=== PATIENT | male | born 1965 | race Hispanic/Latino ===

== ENCOUNTER 2020-06-28 17:50 | Inpatient (IN) | payer MEDICARE ==
[~2020-06-28] VITALS: Ht 149.9 cm; Wt 49.6 kg
[~2020-06-28 17:50] MED LIST: ATROPINE 1MG SYG IVP ONE; CACL 1GM SYG IVP ONE; SODIUM BICARB 8.4% 50ML SYRINGE IVP ONE
[2020-06-28] MEDS ORDERED: KETAMINE HCL 100 MG/ML 5ML VIAL IJ ONE (18:24)
[2020-06-28] MEDS ORDERED: 0.9%NACL 1000ML 1,000 ML IV ONE ×2 (18:46→20:34)
[2020-06-28] MEDS ORDERED: ALBUTEROL INHALER 90MCG/INH IH ONE (19:11)
[2020-06-28 19:24] LABS: BASOPHILS % (AUTO) 0.2 % (0.0-5.0); EOSINOPHILS % (AUTO) 0.2 % (0.0-8.0); HEMATOCRIT 49.1 % (42-54); LYMPHOCYTES % (AUTO) 7.7 % (21.0-51.0); MEAN CORPUSCULAR HEMOGLOBIN 32.1 pg (27.0-33.0); MEAN CORPUSCULAR HGB CONC 32.6 g/dL (32.0-36.0); MEAN CORPUSCULAR VOLUME 98.6 fL (79-99); MONOCYTES % (AUTO) 7.4 % (3.0-13.0); NEUTROPHILS % (AUTO) 84.1 % (40.0-77.0); PLATELET COUNT (AUTO) 133 K/uL (130-400); RED BLOOD CELL COUNT(AUTO) 4.98 MIL/uL (4.50-6.20); WHITE BLOOD COUNT (AUTO) 16.2 K/uL (4.8-10.8)
[2020-06-28 19:53] LABS: ALBUMIN 2.8 g/dL (3.5-5.0); BILIRUBIN,TOTAL 1.3 mg/dL (0.2-1.0); CREATININE 1.5 mg/dL (0.5-1.5); POTASSIUM 3.8 mmol/L (3.5-5.1); TOTAL PROTEIN, SERUM 8.3 g/dL (6.0-8.3)
[2020-06-28] MEDS ORDERED: LORAZEPAM 2 MG/ML 1 ML VIAL ONE (20:01)
[2020-06-28 20:26] LABS: ABG HCO3 27.1 mmol/L (21.0-28.0); ABG OXYGEN SATURATION 88.3 % (95.0-99.0); ABG PCO2 48 mmHg (35-48)
[2020-06-28 20:49] LABS: APPEARANCE,URINE Clear (CLEAR); BILIRUBIN,URINE Small (NEGATIVE); COLOR,URINE Dark Yellow (YELLOW); GLUCOSE, URINE (UA) Negative (NEGATIVE); KETONES,URINE Trace mg/dL (NEGATIVE); LEUKOCYTE ESTERASE ,URINE Negative (NEGATIVE); NITRATE,URINE Negative (NEGATIVE); OCCULT BLOOD,URINE Negative (NEGATIVE); PROTEIN,URINE Trace mg/dL (NEGATIVE)
[2020-06-28 20:58] LABS: BACTERIA,URINE Rare /HPF (None Seen); RBC,URINE None Seen /HPF (0-1); SQUAMOUS EPITHELIAL CELL,UR None Seen /HPF (0-2); WBC,URINE 0-1 /HPF (0-1)
[2020-06-28] MEDS ORDERED: ERGOCALCIFEROL (VITAMIN D2) 50,000 UNIT CAPSULE PO ONE (21:30)
[2020-06-28] MEDS ORDERED: ACETAMINOPHEN 325 MG TAB PO PRN ×2 (21:30)
[2020-06-28] MEDS ORDERED: DEXTROSE 5 %-0.45 % NACL 1,000 ML IV SCH (21:30)
[2020-06-28] MEDS ORDERED: DIPHENHYDRAMINE HCL 25 MG CAPSULE PO PRN (21:30)
[2020-06-28] MEDS ORDERED: DiphenhydrAMINE HCL 50 MG/ML VIAL IV PRN (21:30)
[2020-06-28] MEDS ORDERED: ONDANSETRON 4MG INJ IV PRN (21:30)
[2020-06-28] MEDS ORDERED: GUAIFENESIN-DM 200/20 MG 10 ML PO PRN (21:30)
[2020-06-28] MEDS ORDERED: NITROGLYCERIN 0.4 MG SL TAB SL PRN (21:30)
[2020-06-28] MEDS ORDERED: LACTULOSE 20 GM/30 ML UDCUP PO PRN (21:30)
[2020-06-28] MEDS ORDERED: MAG/ALUM/SIMETH 30 ML UDCUP PO PRN (21:30)
[2020-06-28] MEDS ORDERED: CEFTRIAXONE 1G VIAL ONE (21:37)
[2020-06-28] MEDS ORDERED: AZITHROMYCIN 500MG+NS 250ML 250 ML IV ONE (21:37)
[2020-06-28] MEDS ORDERED: ACETAMINOPHEN 650 MG SUPPOSITORY RC ONE (21:38)
[2020-06-28] MEDS ORDERED: DEXTROSE 5 %-0.45 % NACL 1,000 ML IV ONE (23:13)
[2020-06-29 01:42] LABS: CREATININE 1.2 mg/dL (0.5-1.5)
[2020-06-29 01:43] LABS: POTASSIUM 4.9 mmol/L (3.5-5.1)
[2020-06-29 04:56] VITALS: BP 100/77
[2020-06-29 07:51] LABS: BASOPHILS % (AUTO) 0.2 % (0.0-5.0); EOSINOPHILS % (AUTO) 0.9 % (0.0-8.0); LYMPHOCYTES % (AUTO) 10.5 % (21.0-51.0); MEAN CORPUSCULAR HEMOGLOBIN 32.1 pg (27.0-33.0); MEAN CORPUSCULAR HGB CONC 30.8 g/dL (32.0-36.0); MEAN CORPUSCULAR VOLUME 104.1 fL (79-99); MONOCYTES % (AUTO) 8.8 % (3.0-13.0); NEUTROPHILS % (AUTO) 79.1 % (40.0-77.0); PLATELET COUNT (AUTO) 114 K/uL (130-400); RED BLOOD CELL COUNT(AUTO) 4.61 MIL/uL (4.50-6.20); RED CELL DISTRIBUTION WIDTH 14.4 % (11.0-15.5); WHITE BLOOD COUNT (AUTO) 14.1 K/uL (4.8-10.8)
[2020-06-29 08:03] LABS: ALBUMIN 2.4 g/dL (3.5-5.0); BILIRUBIN,TOTAL 0.8 mg/dL (0.2-1.0); CREATININE 1.4 mg/dL (0.5-1.5); CRP QUANTITATIVE 158.2 mg/L (0.00-9.0); POTASSIUM 5.6 mmol/L (3.5-5.1); TOTAL PROTEIN, SERUM 7.1 g/dL (6.0-8.3)
[2020-06-29 08:21] VITALS: BP 95/65
[2020-06-29] MEDS ORDERED: ACETYLCYSTEINE 600 MG CAPSULE PO SCH (09:00)
[2020-06-29] MEDS ORDERED: ENOXAPARIN SODIUM 40 MG/0.4 ML SYRINGE SQ SCH (09:00)
[2020-06-29] MEDS ORDERED: ZINC SULFATE 220 CAPSULE PO SCH (09:00)
[2020-06-29] MEDS ORDERED: ASCORBIC ACID 500 MG TAB PO SCH (09:00)
[2020-06-29] MEDS ORDERED: FAMOTIDINE 20MG VIAL IV SCH (09:00)
[2020-06-29] MEDS ORDERED: DEXTROSE 50%-WATER 50 ML DISP.SYRIN IV SCH (09:15)
[2020-06-29] MEDS ORDERED: CALCIUM GLUC 1GM/10ML VIAL IV SCH (09:15)
[2020-06-29] MEDS: DEXTROSE 5%-WATER 1,000 ML IV SCH (09:16)
[2020-06-29] MEDS: ZOSYN 3.375GM+NS 50ML 50 ML IV SCH ×2 (09:21→20:37)
[2020-06-29] MEDS ORDERED: CALCIUM GLUC 1GM 1 GM in 0.9%NACL 100ML 100 ML IV SCH (09:30)
[2020-06-29] MEDS: INSULIN HUMULIN R 100 UNIT/ML 3ML IV SCH (09:31)
[2020-06-29] MEDS: FAMOTIDINE 20MG VIAL IV SCH (09:37)
[2020-06-29 09:45] LABS: THYROID STIMULATING HORMONE 3.1 uIU/mL (0.36-3.74)
[2020-06-29 11:57] LABS: CREATININE 1.2 mg/dL (0.5-1.5); POTASSIUM 3.5 mmol/L (3.5-5.1)
[2020-06-29] MEDS: HALOPERIDOL INJ 5 MG/ML VIAL IM PRN (16:08)
[2020-06-29 16:22] VITALS: BP 103/71
[2020-06-29] MEDS: AZITHROMYCIN 500MG+NS 250ML 250 ML IV SCH (16:31)
[2020-06-29 16:34] LABS: CREATININE 1.4 mg/dL (0.5-1.5); POTASSIUM 4.8 mmol/L (3.5-5.1)
[2020-06-29 20:05] VITALS: BP 102/50
[2020-06-30] VITALS (14 sets, daily range): BP systolic 87–116; BP diastolic 45–71
[2020-06-30 04:52] LABS: BASOPHILS % (AUTO) 0.4 % (0.0-5.0); EOSINOPHILS % (AUTO) 0.1 % (0.0-8.0); HEMATOCRIT 46.6 % (42-54); MEAN CORPUSCULAR HEMOGLOBIN 31.5 pg (27.0-33.0); MEAN CORPUSCULAR HGB CONC 30.3 g/dL (32.0-36.0); MEAN CORPUSCULAR VOLUME 104.3 fL (79-99); MONOCYTES % (AUTO) 6.6 % (3.0-13.0); NEUTROPHILS % (AUTO) 83.5 % (40.0-77.0); PLATELET COUNT (AUTO) 109 K/uL (130-400); RED BLOOD CELL COUNT(AUTO) 4.47 MIL/uL (4.50-6.20); RED CELL DISTRIBUTION WIDTH 14.3 % (11.0-15.5); WHITE BLOOD COUNT (AUTO) 17.1 K/uL (4.8-10.8)
[2020-06-30] MEDS: DEXTROSE 5%-WATER 1,000 ML IV SCH ×2 (04:53→14:45)
[2020-06-30 05:06] LABS: ALBUMIN 2.3 g/dL (3.5-5.0); BILIRUBIN,TOTAL 1.2 mg/dL (0.2-1.0); CREATININE 1.6 mg/dL (0.5-1.5); CRP QUANTITATIVE 154.6 mg/L (0.00-9.0); POTASSIUM 4.2 mmol/L (3.5-5.1); TOTAL PROTEIN, SERUM 6.8 g/dL (6.0-8.3)
[2020-06-30] MEDS: HALOPERIDOL INJ 5 MG/ML VIAL IM PRN (07:31)
[2020-06-30] MEDS: FAMOTIDINE 20MG VIAL IV SCH ×2 (09:00→21:03)
[2020-06-30] MEDS: DEXAMETHASONE SOD PHOSPHATE 4 MG/ML 1ML VIAL IV SCH (09:00)
[2020-06-30] MEDS ORDERED: ENOXAPARIN SODIUM 40 MG/0.4 ML SYRINGE SQ SCH (09:00)
[2020-06-30] MEDS: INSULIN HUMULIN R 100 UNIT/ML 3ML IV SCH (09:15)
[2020-06-30] MEDS: ZOSYN 3.375GM+NS 50ML 50 ML IV SCH (09:15)
[2020-06-30] MEDS ORDERED: PROPOFOL 10 MG/ML 20ML VIAL IV ONE (09:25)
[2020-06-30] MEDS ORDERED: PHENYLEPHRINE HCL 10 MG/ML 1ML VIAL IV ONE (09:29)
[2020-06-30] MEDS ORDERED: EPHEDRINE SULFATE 50 MG/ML AMPULE ONE ×2 (09:29→09:41)
[2020-06-30] MEDS ORDERED: EPINEPHRINE PF 1MG AMP ONE (09:41)
[2020-06-30 09:51] LABS: ABG BASE EXCESS 2.1 mmol/L (-2.0-3.0); ABG HCO3 32.6 mmol/L (21.0-28.0); ABG OXYGEN SATURATION 59.4 % (95.0-99.0); ABG PCO2 86 mmHg (35-48)
[2020-06-30] MEDS ORDERED: GLYCOPYRROLATE 1 MG/5 ML SYRINGE ONE (09:53)
[2020-06-30] MEDS ORDERED: ROCURONIUM BROMIDE 10MG/1ML 5ML VL ONE (10:07)
[2020-06-30] MEDS ORDERED: NOREPINEPHRINE BITARTRATE 1 MG/1 ML ML IV ONE (10:11)
[2020-06-30] MEDS ORDERED: PHARMACY COMMUNICATION MISC SCH (10:15)
[2020-06-30] MEDS ORDERED: REMDESIVIR (EUA) 520 200 MG in 0.9% NACL 250ML 250 ML IV SCH (10:15)
[2020-06-30] MEDS ORDERED: COMPOUND IV REFRIGERATED 1 EACH IVSOLN MISC PRN (10:15)
[2020-06-30] MEDS ORDERED: GENTAMICIN 80 MG/NS 100 ML PB 100 ML IV ONE (10:20)
[2020-06-30] MEDS ORDERED: VASOPRESSIN 20 UNITS in 0.9%NACL 100ML 100 ML IV SCH (11:18)
[2020-06-30] MEDS ORDERED: NOREPINEPHRIN 4MG/NS 250ML 250 ML IV ONE (11:22)
[2020-06-30] MEDS ORDERED: PROPOFOL 1000 MG/100 ML 100 ML IV SCH (11:24)
[2020-06-30] MEDS ORDERED: FENTANYL CITRATE PF 0.05 MG/ML 1,000 MCG in 0.9%NACL 100ML 100 ML IVPB SCH (11:24)
[2020-06-30] MEDS ORDERED: PHENYLEPHRINE HCL 10 MG in 0.9% NACL 250ML 250 ML IV SCH (11:30)
[2020-06-30 11:35] LABS: ABG BASE EXCESS 4.2 mmol/L (-2.0-3.0); ABG OXYGEN SATURATION 97.7 % (95.0-99.0); ABG PCO2 35 mmHg (35-48)
[2020-06-30] MEDS ORDERED: PHARMACY COMMUNICATION MISC STA (12:04)
[2020-06-30] MEDS ORDERED: VECURONIUM 10MG/10ML IV SCH (12:15)
[2020-06-30] MEDS ORDERED: FENTANYL 2500MCG+NS 250ML 250 ML IV ONE (12:34)
[2020-06-30] MEDS: CLINDAMYCIN 600MG IN 0.9% SOD 50 ML IV SCH ×2 (12:38→16:07)
[2020-06-30] MEDS: GENTAMICIN 80 MG/NS 100 ML PB 100 ML IV SCH ×2 (12:38→16:07)
[2020-06-30] MEDS ORDERED: MIDAZOLAM 50MG-0.9% NS 50ML 50 ML BAG IV SCH (14:45)
[2020-06-30 15:55] LABS: BASOPHILS % (AUTO) 0.5 % (0.0-5.0); EOSINOPHILS % (AUTO) 0.3 % (0.0-8.0); LYMPHOCYTES % (AUTO) 6.6 % (21.0-51.0); MEAN CORPUSCULAR HEMOGLOBIN 31.8 pg (27.0-33.0); MEAN CORPUSCULAR HGB CONC 31.6 g/dL (32.0-36.0); MEAN CORPUSCULAR VOLUME 100.5 fL (79-99); MONOCYTES % (AUTO) 4.2 % (3.0-13.0); NEUTROPHILS % (AUTO) 87.9 % (40.0-77.0); PLATELET COUNT (AUTO) 84 K/uL (130-400); RED BLOOD CELL COUNT(AUTO) 3.68 MIL/uL (4.50-6.20); WHITE BLOOD COUNT (AUTO) 14.9 K/uL (4.8-10.8)
[2020-06-30] MEDS: MIDAZOLAM 100MG-0.9% NS 100ML 100 ML IV SCH (16:01)
[2020-06-30 16:34] LABS: ALBUMIN 1.8 g/dL (3.5-5.0); CREATININE 1.4 mg/dL (0.5-1.5); POTASSIUM 3.5 mmol/L (3.5-5.1); TOTAL PROTEIN, SERUM 5.4 g/dL (6.0-8.3)
[2020-06-30] MEDS ORDERED: PHENYLEPHRINE HCL 50 MG in 0.9% NACL 250ML 250 ML IV PRN (16:45)
[2020-06-30] MEDS: AZITHROMYCIN 500MG+NS 250ML 250 ML IV SCH (17:15)
[2020-07-01] VITALS (25 sets, daily range): BP systolic 79–135; BP diastolic 57–100
[2020-07-01] MEDS: MEROPENEM 1 GM VIAL IVP SCH ×4 (00:09→22:49)
[2020-07-01] MEDS: DEXTROSE 5%-WATER 1,000 ML IV SCH ×2 (00:10→09:20)
[2020-07-01] MEDS: MIDAZOLAM 100MG-0.9% NS 100ML 100 ML IV SCH ×3 (01:02→19:32)
[2020-07-01] MEDS: NOREPINEPHRIN 4MG/NS 250ML 250 ML IV PRN ×4 (01:48→10:54)
[2020-07-01 04:39] LABS: BASOPHILS % (AUTO) 0.4 % (0.0-5.0); HEMATOCRIT 32.7 % (42-54); LYMPHOCYTES % (AUTO) 5.3 % (21.0-51.0); MEAN CORPUSCULAR HEMOGLOBIN 31.9 pg (27.0-33.0); MEAN CORPUSCULAR HGB CONC 32.1 g/dL (32.0-36.0); MEAN CORPUSCULAR VOLUME 99.4 fL (79-99); MONOCYTES % (AUTO) 4.9 % (3.0-13.0); PLATELET COUNT (AUTO) 79 K/uL (130-400); RED BLOOD CELL COUNT(AUTO) 3.29 MIL/uL (4.50-6.20); RED CELL DISTRIBUTION WIDTH 14.3 % (11.0-15.5); WHITE BLOOD COUNT (AUTO) 21.9 K/uL (4.8-10.8)
[2020-07-01 05:02] LABS: ALBUMIN 1.5 g/dL (3.5-5.0); BILIRUBIN,DIRECT 0.2 mg/dL (0.0-0.3); BILIRUBIN,TOTAL 0.6 mg/dL (0.2-1.0); CREATININE 1.6 mg/dL (0.5-1.5); POTASSIUM 3.2 mmol/L (3.5-5.1)
[2020-07-01] MEDS: REMDESIVIR LABS MISC SCH (05:31)
[2020-07-01 05:32] LABS: CRP QUANTITATIVE 212.8 mg/L (0.00-9.0)
[2020-07-01] MEDS: BARICITINIB (EUA) 2 MG TABLET PO SCH ×3 (09:00→10:07)
[2020-07-01 09:17] LABS: ABG BASE EXCESS -2.6 mmol/L (-2.0-3.0); ABG HCO3 23.2 mmol/L (21.0-28.0); ABG OXYGEN SATURATION 91.4 % (95.0-99.0); ABG PCO2 44 mmHg (35-48)
[2020-07-01] MEDS: POTASSIUM CHLORIDE 20MEQ/100ML 100 ML IV PRN ×2 (09:19→10:27)
[2020-07-01] MEDS: DEXAMETHASONE SOD PHOSPHATE 4 MG/ML 1ML VIAL IV SCH (10:01)
[2020-07-01] MEDS: FAMOTIDINE 20MG VIAL IV SCH ×2 (10:01→21:12)
[2020-07-01] MEDS ORDERED: PHARMACY COMMUNICATION MISC SCH (11:00)
[2020-07-01] MEDS ORDERED: NOREPINEPHRINE BITARTRATE 8 MG/NS 250ML IV SCH ×2 (11:15)
[2020-07-01] MEDS: INSULIN HUMULIN R 100 UNIT/ML 3ML IV SCH (11:15)
[2020-07-01] MEDS: REMDESIVIR (EUA) 520 100 MG in 0.9% NACL 250ML 250 ML IV SCH (14:21)
[2020-07-01] MEDS: AZITHROMYCIN 500MG+NS 250ML 250 ML IV SCH (17:03)
[2020-07-01] MEDS ORDERED: FENTANYL 2500MCG+NS 250ML 250 ML IV ONE (17:13)
[2020-07-01] MEDS ORDERED: FENTANYL 2500MCG+NS 250ML 250 ML IV SCH (17:45)
[2020-07-01] MEDS ORDERED: NOREPINEPHRIN 8MG/250ML NS PMX 250 ML IV ONE ×2 (18:46→19:28)
[2020-07-02] VITALS (26 sets, daily range): BP systolic 82–117; BP diastolic 53–77
[2020-07-02] MEDS: DEXTROSE 5%-WATER 1,000 ML IV SCH ×2 (00:34→13:20)
[2020-07-02 03:57] LABS: BASOPHILS % (AUTO) 0.4 % (0.0-5.0); EOSINOPHILS % (AUTO) 0.2 % (0.0-8.0); HEMATOCRIT 31.5 % (42-54); LYMPHOCYTES % (AUTO) 4.1 % (21.0-51.0); MEAN CORPUSCULAR HEMOGLOBIN 31.3 pg (27.0-33.0); MEAN CORPUSCULAR HGB CONC 31.7 g/dL (32.0-36.0); MEAN CORPUSCULAR VOLUME 98.7 fL (79-99); MONOCYTES % (AUTO) 4.6 % (3.0-13.0); NEUTROPHILS % (AUTO) 89.7 % (40.0-77.0); NUCLEATED RED BLOOD CELLS 0.1 % (0.0-0.19); PLATELET COUNT (AUTO) 59 K/uL (130-400); RED BLOOD CELL COUNT(AUTO) 3.19 MIL/uL (4.50-6.20); RED CELL DISTRIBUTION WIDTH 14.6 % (11.0-15.5); WHITE BLOOD COUNT (AUTO) 19.8 K/uL (4.8-10.8)
[2020-07-02 04:09] LABS: CREATININE 1.3 mg/dL (0.5-1.5); MAGNESIUM 1.8 mg/dL (1.80-2.40); PHOSPHORUS 2.1 mg/dL (2.5-4.9); POTASSIUM 3.7 mmol/L (3.5-5.1)
[2020-07-02 04:29] LABS: PLATELET MORPHOLOGY COMMENT LARGE PLTS PRESENT
[2020-07-02 04:34] LABS: CRP QUANTITATIVE 260.2 mg/L (0.00-9.0)
[2020-07-02 05:38] LABS: ALBUMIN 1.4 g/dL (3.5-5.0); BILIRUBIN,DIRECT 0.2 mg/dL (0.0-0.3); BILIRUBIN,TOTAL 0.4 mg/dL (0.2-1.0); TOTAL PROTEIN, SERUM 5.1 g/dL (6.0-8.3)
[2020-07-02] MEDS: REMDESIVIR LABS MISC SCH (05:51)
[2020-07-02 07:44] LABS: ABG BASE EXCESS -0.2 mmol/L (-2.0-3.0); ABG HCO3 24.1 mmol/L (21.0-28.0); ABG OXYGEN SATURATION 95.1 % (95.0-99.0); ABG PCO2 39 mmHg (35-48)
[2020-07-02] MEDS: BARICITINIB (EUA) 2 MG TABLET PO SCH (08:46)
[2020-07-02] MEDS: FAMOTIDINE 20MG VIAL IV SCH ×2 (08:46→21:16)
[2020-07-02] MEDS: DEXAMETHASONE SOD PHOSPHATE 4 MG/ML 1ML VIAL IV SCH (08:46)
[2020-07-02] MEDS: INSULIN HUMULIN R 100 UNIT/ML 3ML IV SCH (09:15)
[2020-07-02] MEDS: MEROPENEM 1 GM VIAL IVP SCH ×2 (11:01→22:48)
[2020-07-02] MEDS ORDERED: MAGNESIUM 2GM PREMIX 50ML 50 ML IV PRN (11:45)
[2020-07-02] MEDS: REMDESIVIR (EUA) 520 100 MG in 0.9% NACL 250ML 250 ML IV SCH (13:20)
[2020-07-02] MEDS ORDERED: CLINIMIX-E 5%AA /D15%W 2000ML 2,000 ML IV SCH (15:15)
[2020-07-02] MEDS: AZITHROMYCIN 500MG+NS 250ML 250 ML IV SCH (15:25)
[2020-07-02] MEDS: MIDAZOLAM 100MG-0.9% NS 100ML 100 ML IV SCH (23:47)
[2020-07-03] VITALS (24 sets, daily range): BP systolic 82–146; BP diastolic 48–82
[2020-07-03] MEDS: DEXTROSE 5%-WATER 1,000 ML IV SCH ×2 (03:15→17:00)
[2020-07-03 04:18] LABS: HEMATOCRIT 28.8 % (42-54); MEAN CORPUSCULAR HEMOGLOBIN 31.8 pg (27.0-33.0); MEAN CORPUSCULAR HGB CONC 32.3 g/dL (32.0-36.0); MEAN CORPUSCULAR VOLUME 98.6 fL (79-99); NUCLEATED RED BLOOD CELLS 0.3 % (0.0-0.19); PLATELET COUNT (AUTO) 47 K/uL (130-400); RED BLOOD CELL COUNT(AUTO) 2.92 MIL/uL (4.50-6.20); RED CELL DISTRIBUTION WIDTH 14.6 % (11.0-15.5)
[2020-07-03 04:34] LABS: ALBUMIN 1.2 g/dL (3.5-5.0); BILIRUBIN,TOTAL 0.3 mg/dL (0.2-1.0); CREATININE 1.1 mg/dL (0.5-1.5); CRP QUANTITATIVE 195.5 mg/L (0.00-9.0); MAGNESIUM 2.7 mg/dL (1.80-2.40); PHOSPHORUS 2.2 mg/dL (2.5-4.9); POTASSIUM 3.8 mmol/L (3.5-5.1); TOTAL PROTEIN, SERUM 4.6 g/dL (6.0-8.3)
[2020-07-03 05:04] LABS: BAND NEUTROPHILS % (MANUAL) 6 % (0-2); LYMPHOCYTES % (MANUAL) 1 % (22-44); MAN.DIFF COMMENT-IMPRESSION MANUAL DIFFERENTIAL; MONOCYTES % (MANUAL) 5 % (2-9); SEGMENTED NEUTROPHILS % 88 % (40-70)
[2020-07-03] MEDS: REMDESIVIR LABS MISC SCH (05:04)
[2020-07-03 05:06] LABS: PLATELET MORPHOLOGY COMMENT MARKED DECREASE
[2020-07-03] MEDS: BARICITINIB (EUA) 2 MG TABLET PO SCH (09:00)
[2020-07-03] MEDS: INSULIN HUMULIN R 100 UNIT/ML 3ML IV SCH (09:15)
[2020-07-03] MEDS: DEXAMETHASONE SOD PHOSPHATE 4 MG/ML 1ML VIAL IV SCH (09:28)
[2020-07-03] MEDS: FAMOTIDINE 20MG VIAL IV SCH ×2 (09:28→20:53)
[2020-07-03] MEDS: FAT EMULSIONS 20% 250ML 250 ML IV SCH (09:29)
[2020-07-03 10:43] LABS: ABG BASE EXCESS -0.2 mmol/L (-2.0-3.0); ABG HCO3 25.2 mmol/L (21.0-28.0); ABG OXYGEN SATURATION 95.5 % (95.0-99.0); ABG PCO2 44 mmHg (35-48)
[2020-07-03] MEDS: MEROPENEM 1 GM VIAL IVP SCH ×2 (12:45→23:44)
[2020-07-03] MEDS: REMDESIVIR (EUA) 520 100 MG in 0.9% NACL 250ML 250 ML IV SCH (13:24)
[2020-07-03] MEDS ORDERED: CEFEPIME HCL 2 GM VIAL IVP SCH (16:00)
[2020-07-03] MEDS ORDERED: LINEZOLID 600 MG/ISO-OSM 300 ML IV SCH (16:00)
[2020-07-03] MEDS: AZITHROMYCIN 500MG+NS 250ML 250 ML IV SCH (16:08)
[2020-07-03] MEDS ORDERED: CLINIMIX-E 5%AA /D15%W 2000ML 2,000 ML IV ONE (20:30)
[2020-07-03] MEDS: NOREPINEPHRIN 4MG/NS 250ML 250 ML IV SCH (20:55)
[2020-07-04] VITALS (25 sets, daily range): BP systolic 92–155; BP diastolic 18–92
[2020-07-04 04:00] LABS: BASOPHILS % (AUTO) 0.4 % (0.0-5.0); EOSINOPHILS % (AUTO) 0.2 % (0.0-8.0); HEMATOCRIT 29.2 % (42-54); LYMPHOCYTES % (AUTO) 5.5 % (21.0-51.0); MEAN CORPUSCULAR HEMOGLOBIN 31.5 pg (27.0-33.0); MEAN CORPUSCULAR HGB CONC 31.8 g/dL (32.0-36.0); MONOCYTES % (AUTO) 6.9 % (3.0-13.0); NEUTROPHILS % (AUTO) 83.6 % (40.0-77.0); NUCLEATED RED BLOOD CELLS 2.3 % (0.0-0.19); PLATELET COUNT (AUTO) 44 K/uL (130-400); RED BLOOD CELL COUNT(AUTO) 2.95 MIL/uL (4.50-6.20); RED CELL DISTRIBUTION WIDTH 14.7 % (11.0-15.5); WHITE BLOOD COUNT (AUTO) 15.7 K/uL (4.8-10.8)
[2020-07-04 04:25] LABS: ALBUMIN 1.2 g/dL (3.5-5.0); BILIRUBIN,TOTAL 0.3 mg/dL (0.2-1.0); MAGNESIUM 2.3 mg/dL (1.80-2.40); PHOSPHORUS 2.4 mg/dL (2.5-4.9); TOTAL PROTEIN, SERUM 4.4 g/dL (6.0-8.3)
[2020-07-04] MEDS: REMDESIVIR LABS MISC SCH (05:43)
[2020-07-04] MEDS: DEXTROSE 5%-WATER 1,000 ML IV SCH ×2 (05:45→20:40)
[2020-07-04] MEDS ORDERED: LEVO150T11 PO (07:32)
[2020-07-04] MEDS: BARICITINIB (EUA) 2 MG TABLET PO SCH (07:38)
[2020-07-04] MEDS: INSULIN HUMULIN R 100 UNIT/ML 3ML IV SCH (09:15)
[2020-07-04] MEDS: DEXAMETHASONE SOD PHOSPHATE 4 MG/ML 1ML VIAL IV SCH (10:01)
[2020-07-04] MEDS: FAMOTIDINE 20MG VIAL IV SCH ×2 (10:01→22:00)
[2020-07-04] MEDS: MEROPENEM 1 GM VIAL IVP SCH ×2 (12:37→23:09)
[2020-07-04] MEDS: REMDESIVIR (EUA) 520 100 MG in 0.9% NACL 250ML 250 ML IV SCH (15:10)
[2020-07-04] MEDS: AZITHROMYCIN 500MG+NS 250ML 250 ML IV SCH (17:35)
[2020-07-04] MEDS: NOREPINEPHRIN 4MG/NS 250ML 250 ML IV SCH (19:22)
[2020-07-05] VITALS (18 sets, daily range): BP systolic 99–193; BP diastolic 48–90
[2020-07-05 04:42] LABS: HEMATOCRIT 26.3 % (42-54); MEAN CORPUSCULAR HEMOGLOBIN 32.2 pg (27.0-33.0); MEAN CORPUSCULAR HGB CONC 32.7 g/dL (32.0-36.0); MEAN CORPUSCULAR VOLUME 98.5 fL (79-99); NUCLEATED RED BLOOD CELLS 2.3 % (0.0-0.19); RED BLOOD CELL COUNT(AUTO) 2.67 MIL/uL (4.50-6.20); RED CELL DISTRIBUTION WIDTH 14.8 % (11.0-15.5); WHITE BLOOD COUNT (AUTO) 11.5 K/uL (4.8-10.8)
[2020-07-05 05:01] LABS: ALBUMIN 1.1 g/dL (3.5-5.0); BILIRUBIN,TOTAL 0.4 mg/dL (0.2-1.0); CREATININE 0.9 mg/dL (0.5-1.5); MAGNESIUM 2.3 mg/dL (1.80-2.40); PHOSPHORUS 3.1 mg/dL (2.5-4.9); POTASSIUM 4.4 mmol/L (3.5-5.1); TOTAL PROTEIN, SERUM 4.2 g/dL (6.0-8.3)
[2020-07-05] MEDS: REMDESIVIR LABS MISC SCH (05:14)
[2020-07-05 06:06] LABS: INR 1.34 (0.85-1.15); PROTHROMBIN TIME 14.2 SEC (9.6-11.6)
[2020-07-05] MEDS: DEXAMETHASONE SOD PHOSPHATE 4 MG/ML 1ML VIAL IV SCH (08:13)
[2020-07-05] MEDS: FAMOTIDINE 20MG VIAL IV SCH ×2 (08:13→21:48)
[2020-07-05] MEDS: BARICITINIB (EUA) 2 MG TABLET PO SCH (08:14)
[2020-07-05] MEDS: DEXTROSE 5%-WATER 1,000 ML IV SCH ×2 (09:00→21:48)
[2020-07-05] MEDS: FAT EMULSIONS 20% 250ML 250 ML IV SCH (09:14)
[2020-07-05] MEDS: INSULIN HUMULIN R 100 UNIT/ML 3ML IV SCH (09:15)
[2020-07-05] MEDS ORDERED: SIMETHICONE 40 MG/0.6 ML ML ONE (11:43)
[2020-07-05] MEDS ORDERED: 0.9% NACL 500ML IV.SOLN 500 ML IV ONE ×2 (13:13→15:38)
[2020-07-05] MEDS: MEROPENEM 1 GM VIAL IVP SCH (13:35)
[2020-07-05 13:58] LABS: HDL CHOLESTEROL 30 mg/dL (29-71); LDL DIRECT 18 mg/dL (0-99); TRIGLYCERIDES 22 mg/dL (30-200)
[2020-07-05 14:15] LABS: CHOLESTEROL < 50 mg/dL (<200)
[2020-07-05] MEDS: AZITHROMYCIN 500MG+NS 250ML 250 ML IV SCH (15:15)
[2020-07-05] MEDS ORDERED: METOPROLOL TARTRATE 1 MG/ML 5ML VIAL IV SCH (21:15)
[2020-07-06] VITALS (24 sets, daily range): BP systolic 92–140; BP diastolic 45–75
[2020-07-06] MEDS: MEROPENEM 1 GM VIAL IVP SCH ×3 (00:34→23:59)
[2020-07-06 06:05] LABS: BASOPHILS % (AUTO) 0.3 % (0.0-5.0); HEMATOCRIT 25.6 % (42-54); LYMPHOCYTES % (AUTO) 6.9 % (21.0-51.0); MEAN CORPUSCULAR HEMOGLOBIN 31.8 pg (27.0-33.0); MEAN CORPUSCULAR HGB CONC 32.4 g/dL (32.0-36.0); MEAN CORPUSCULAR VOLUME 98.1 fL (79-99); MONOCYTES % (AUTO) 9.1 % (3.0-13.0); NUCLEATED RED BLOOD CELLS 0.5 % (0.0-0.19); PLATELET COUNT (AUTO) 184 K/uL (130-400); RED BLOOD CELL COUNT(AUTO) 2.61 MIL/uL (4.50-6.20); RED CELL DISTRIBUTION WIDTH 14.6 % (11.0-15.5); WHITE BLOOD COUNT (AUTO) 16.3 K/uL (4.8-10.8)
[2020-07-06 06:22] LABS: CREATININE 0.8 mg/dL (0.5-1.5); POTASSIUM 4.5 mmol/L (3.5-5.1)
[2020-07-06] MEDS: DEXAMETHASONE SOD PHOSPHATE 4 MG/ML 1ML VIAL IV SCH (08:39)
[2020-07-06] MEDS: FAMOTIDINE 20MG VIAL IV SCH ×2 (08:39→22:02)
[2020-07-06] MEDS: BARICITINIB (EUA) 2 MG TABLET PO SCH (08:39)
[2020-07-06] MEDS: MIDAZOLAM 100MG-0.9% NS 100ML 100 ML IV SCH (10:02)
[2020-07-06 12:15] LABS: THYROID STIMULATING HORMONE 5.49 uIU/mL (0.36-3.74)
[2020-07-06] MEDS: DEXTROSE 5%-WATER 1,000 ML IV SCH (16:02)
[2020-07-06 16:42] LABS: ABG BASE EXCESS 5.6 mmol/L (-2.0-3.0); ABG HCO3 28.4 mmol/L (21.0-28.0); ABG OXYGEN SATURATION 86.8 % (95.0-99.0); ABG PCO2 36 mmHg (35-48)
[2020-07-06 23:45] LABS: CREATININE 0.7 mg/dL (0.5-1.5); POTASSIUM 5.2 mmol/L (3.5-5.1)
[2020-07-07] VITALS (20 sets, daily range): BP systolic 91–135; BP diastolic 46–83
[2020-07-07 06:40] LABS: BASOPHILS % (AUTO) 0.2 % (0.0-5.0); HEMATOCRIT 26.3 % (42-54); MEAN CORPUSCULAR HEMOGLOBIN 31.6 pg (27.0-33.0); MEAN CORPUSCULAR HGB CONC 31.9 g/dL (32.0-36.0); MEAN CORPUSCULAR VOLUME 98.9 fL (79-99); MONOCYTES % (AUTO) 7.8 % (3.0-13.0); NEUTROPHILS % (AUTO) 74.5 % (40.0-77.0); NUCLEATED RED BLOOD CELLS 0.7 % (0.0-0.19); PLATELET COUNT (AUTO) 146 K/uL (130-400); RED BLOOD CELL COUNT(AUTO) 2.66 MIL/uL (4.50-6.20); RED CELL DISTRIBUTION WIDTH 14.8 % (11.0-15.5); WHITE BLOOD COUNT (AUTO) 9.5 K/uL (4.8-10.8)
[2020-07-07] MEDS: LEVOTHYROXINE 150 MCG TABLET PO SCH (06:41)
[2020-07-07] MEDS: DEXTROSE 5%-WATER 1,000 ML IV SCH (06:44)
[2020-07-07 07:00] LABS: CREATININE 0.6 mg/dL (0.5-1.5); MAGNESIUM 2.2 mg/dL (1.80-2.40); POTASSIUM 4.4 mmol/L (3.5-5.1)
[2020-07-07] MEDS: FAMOTIDINE 20MG VIAL IV SCH ×2 (08:39→21:22)
[2020-07-07] MEDS: BARICITINIB (EUA) 2 MG TABLET PO SCH (08:39)
[2020-07-07] MEDS: DEXAMETHASONE SOD PHOSPHATE 4 MG/ML 1ML VIAL IV SCH (08:39)
[2020-07-07] MEDS: MEROPENEM 1 GM VIAL IVP SCH ×2 (11:33→22:58)
[2020-07-07] MEDS ORDERED: DEXMEDETOMIDINE HCL 400 MCG in 0.9%NACL 100ML 100 ML IV SCH (12:08)
[2020-07-08] VITALS (25 sets, daily range): BP systolic 102–141; BP diastolic 48–84
[2020-07-08] MEDS: LEVOTHYROXINE 150 MCG TABLET PO SCH (05:59)
[2020-07-08 06:02] LABS: BASOPHILS % (AUTO) 0.3 % (0.0-5.0); HEMATOCRIT 27.7 % (42-54); LYMPHOCYTES % (AUTO) 11.9 % (21.0-51.0); MEAN CORPUSCULAR HEMOGLOBIN 31.6 pg (27.0-33.0); MEAN CORPUSCULAR HGB CONC 33.2 g/dL (32.0-36.0); MEAN CORPUSCULAR VOLUME 95.2 fL (79-99); MONOCYTES % (AUTO) 6.9 % (3.0-13.0); NEUTROPHILS % (AUTO) 74.1 % (40.0-77.0); NUCLEATED RED BLOOD CELLS 0.3 % (0.0-0.19); PLATELET COUNT (AUTO) 132 K/uL (130-400); RED BLOOD CELL COUNT(AUTO) 2.91 MIL/uL (4.50-6.20); RED CELL DISTRIBUTION WIDTH 14.3 % (11.0-15.5); WHITE BLOOD COUNT (AUTO) 10.2 K/uL (4.8-10.8)
[2020-07-08 06:11] LABS: CREATININE 0.8 mg/dL (0.5-1.5); POTASSIUM 4.5 mmol/L (3.5-5.1)
[2020-07-08] MEDS: FAMOTIDINE 20MG VIAL IV SCH ×2 (09:12→21:40)
[2020-07-08] MEDS: BARICITINIB (EUA) 2 MG TABLET PO SCH (09:12)
[2020-07-08] MEDS: DEXAMETHASONE SOD PHOSPHATE 4 MG/ML 1ML VIAL IV SCH (09:12)
[2020-07-08] MEDS: ENOXAPARIN SODIUM 40 MG/0.4 ML SYRINGE SQ SCH (09:13)
[2020-07-08] MEDS: MEROPENEM 1 GM VIAL IVP SCH ×2 (12:04→23:29)
[2020-07-09] VITALS (25 sets, daily range): BP systolic 105–127; BP diastolic 46–103
[2020-07-09] MEDS: LEVOTHYROXINE 150 MCG TABLET PO SCH (06:22)
[2020-07-09 06:34] LABS: EOSINOPHILS % (AUTO) 0.1 % (0.0-8.0); HEMATOCRIT 23.8 % (42-54); LYMPHOCYTES % (AUTO) 12.4 % (21.0-51.0); MEAN CORPUSCULAR HGB CONC 33.6 g/dL (32.0-36.0); MEAN CORPUSCULAR VOLUME 95.2 fL (79-99); MONOCYTES % (AUTO) 5.9 % (3.0-13.0); NEUTROPHILS % (AUTO) 78.5 % (40.0-77.0); PLATELET COUNT (AUTO) 88 K/uL (130-400); RED CELL DISTRIBUTION WIDTH 14.4 % (11.0-15.5); WHITE BLOOD COUNT (AUTO) 7.4 K/uL (4.8-10.8)
[2020-07-09 06:56] LABS: ALBUMIN 1.3 g/dL (3.5-5.0); BILIRUBIN,TOTAL 1.3 mg/dL (0.2-1.0); CREATININE 0.8 mg/dL (0.5-1.5); CRP QUANTITATIVE 33.9 mg/L (0.00-9.0); POTASSIUM 4.1 mmol/L (3.5-5.1); TOTAL PROTEIN, SERUM 4.4 g/dL (6.0-8.3)
[2020-07-09] MEDS: FAMOTIDINE 20MG VIAL IV SCH ×2 (09:40→21:44)
[2020-07-09] MEDS: DEXAMETHASONE SOD PHOSPHATE 4 MG/ML 1ML VIAL IV SCH (09:40)
[2020-07-09] MEDS: BARICITINIB (EUA) 2 MG TABLET PO SCH (10:02)
[2020-07-09] MEDS: ENOXAPARIN SODIUM 40 MG/0.4 ML SYRINGE SQ SCH (10:48)
[2020-07-09] MEDS: MEROPENEM 1 GM VIAL IVP SCH ×2 (10:51→22:56)
[2020-07-10] VITALS (24 sets, daily range): BP systolic 70–144; BP diastolic 34–76
[2020-07-10 04:46] LABS: BASOPHILS % (AUTO) 0.4 % (0.0-5.0); EOSINOPHILS % (AUTO) 0.3 % (0.0-8.0); HEMATOCRIT 27.2 % (42-54); LYMPHOCYTES % (AUTO) 9.4 % (21.0-51.0); MEAN CORPUSCULAR HEMOGLOBIN 31.6 pg (27.0-33.0); MEAN CORPUSCULAR HGB CONC 33.8 g/dL (32.0-36.0); MEAN CORPUSCULAR VOLUME 93.5 fL (79-99); MONOCYTES % (AUTO) 5.1 % (3.0-13.0); NEUTROPHILS % (AUTO) 79.8 % (40.0-77.0); PLATELET COUNT (AUTO) 95 K/uL (130-400); RED BLOOD CELL COUNT(AUTO) 2.91 MIL/uL (4.50-6.20); RED CELL DISTRIBUTION WIDTH 14.6 % (11.0-15.5); WHITE BLOOD COUNT (AUTO) 10.9 K/uL (4.8-10.8)
[2020-07-10 05:05] LABS: ALBUMIN 1.6 g/dL (3.5-5.0); BILIRUBIN,DIRECT 0.5 mg/dL (0.0-0.3); BILIRUBIN,TOTAL 1.9 mg/dL (0.2-1.0); CREATININE 0.8 mg/dL (0.5-1.5); POTASSIUM 4.2 mmol/L (3.5-5.1); TOTAL PROTEIN, SERUM 5.4 g/dL (6.0-8.3)
[2020-07-10] MEDS: LEVOTHYROXINE 150 MCG TABLET PO SCH (05:38)
[2020-07-10] MEDS ORDERED: MIDAZOLAM 100MG-0.9% NS 100ML 50 ML IV PRN (06:45)
[2020-07-10] MEDS ORDERED: FENTANYL CITRATE PF 50 MCG/1 ML 2ML VIAL IVP PRN (06:45)
[2020-07-10] MEDS ORDERED: MIDAZOLAM 100MG-0.9% NS 100ML 100 ML IV SCH (07:00)
[2020-07-10] MEDS ORDERED: FENTANYL 2500MCG+NS 250ML 250 ML IV SCH (07:00)
[2020-07-10 07:11] LABS: ABG HCO3 27.9 mmol/L (21.0-28.0); ABG OXYGEN SATURATION 99.1 % (95.0-99.0); ABG PCO2 36 mmHg (35-48)
[2020-07-10] MEDS ORDERED: ALBUMIN (HUMAN) 25% 50 ML IV SCH (08:19)
[2020-07-10] MEDS ORDERED: FUROSEMIDE 100MG VIAL IVP SCH (08:19)
[2020-07-10] MEDS: FAMOTIDINE 20MG VIAL IV SCH ×2 (08:25→20:58)
[2020-07-10] MEDS: BARICITINIB (EUA) 2 MG TABLET PO SCH (08:25)
[2020-07-10] MEDS: ENOXAPARIN SODIUM 40 MG/0.4 ML SYRINGE SQ SCH (08:26)
[2020-07-10] MEDS: ALBUTEROL INHALER 90MCG/INH IH SCH ×4 (10:00→18:27)
[2020-07-10] MEDS: MEROPENEM 1 GM VIAL IVP SCH ×2 (12:07→23:27)
[2020-07-11] VITALS (28 sets, daily range): BP systolic 118–167; BP diastolic 56–72
[2020-07-11 04:19] LABS: BASOPHILS % (AUTO) 0.1 % (0.0-5.0); HEMATOCRIT 23.6 % (42-54); LYMPHOCYTES % (AUTO) 8.4 % (21.0-51.0); MEAN CORPUSCULAR HEMOGLOBIN 31.7 pg (27.0-33.0); MEAN CORPUSCULAR HGB CONC 33.9 g/dL (32.0-36.0); MEAN CORPUSCULAR VOLUME 93.7 fL (79-99); MONOCYTES % (AUTO) 5.3 % (3.0-13.0); NEUTROPHILS % (AUTO) 84.5 % (40.0-77.0); PLATELET COUNT (AUTO) 81 K/uL (130-400); RED BLOOD CELL COUNT(AUTO) 2.52 MIL/uL (4.50-6.20); RED CELL DISTRIBUTION WIDTH 14.6 % (11.0-15.5); WHITE BLOOD COUNT (AUTO) 7.9 K/uL (4.8-10.8)
[2020-07-11 04:43] LABS: CREATININE 0.7 mg/dL (0.5-1.5); CRP QUANTITATIVE 122.6 mg/L (0.00-9.0); POTASSIUM 3.5 mmol/L (3.5-5.1)
[2020-07-11] MEDS: LEVOTHYROXINE 150 MCG TABLET PO SCH (05:24)
[2020-07-11 06:54] LABS: ABG BASE EXCESS 3.8 mmol/L (-2.0-3.0); ABG OXYGEN SATURATION 53.7 % (95.0-99.0); ABG PCO2 41 mmHg (35-48)
[2020-07-11] MEDS: ALBUTEROL INHALER 90MCG/INH IH SCH ×5 (08:44→22:29)
[2020-07-11] MEDS: ENOXAPARIN SODIUM 40 MG/0.4 ML SYRINGE SQ SCH (09:06)
[2020-07-11] MEDS: FAMOTIDINE 20MG VIAL IV SCH ×2 (09:06→21:01)
[2020-07-11] MEDS ORDERED: DEXAMETHASONE SOD PHOSPHATE 4 MG/ML 1ML VIAL IVP SCH (10:00)
[2020-07-11] MEDS: BARICITINIB (EUA) 2 MG TABLET PO SCH (12:50)
[2020-07-11] MEDS: MEROPENEM 1 GM VIAL IVP SCH ×2 (12:50→23:40)
[2020-07-12] VITALS (26 sets, daily range): BP systolic 119–177; BP diastolic 55–79
[2020-07-12 04:17] LABS: BASOPHILS % (AUTO) 0.1 % (0.0-5.0); HEMATOCRIT 29.2 % (42-54); LYMPHOCYTES % (AUTO) 3.9 % (21.0-51.0); MEAN CORPUSCULAR HEMOGLOBIN 31.9 pg (27.0-33.0); MEAN CORPUSCULAR HGB CONC 33.6 g/dL (32.0-36.0); MEAN CORPUSCULAR VOLUME 95.1 fL (79-99); MONOCYTES % (AUTO) 5.3 % (3.0-13.0); NEUTROPHILS % (AUTO) 89.2 % (40.0-77.0); PLATELET COUNT (AUTO) 113 K/uL (130-400); RED BLOOD CELL COUNT(AUTO) 3.07 MIL/uL (4.50-6.20); RED CELL DISTRIBUTION WIDTH 14.9 % (11.0-15.5); WHITE BLOOD COUNT (AUTO) 12.3 K/uL (4.8-10.8)
[2020-07-12 04:29] LABS: CREATININE 0.6 mg/dL (0.5-1.5); POTASSIUM 3.9 mmol/L (3.5-5.1)
[2020-07-12 05:39] LABS: CRP QUANTITATIVE 143.1 mg/L (0.00-9.0)
[2020-07-12] MEDS: LEVOTHYROXINE 150 MCG TABLET PO SCH (05:47)
[2020-07-12] MEDS: FAMOTIDINE 20MG VIAL IV SCH ×2 (08:34→21:24)
[2020-07-12] MEDS: BARICITINIB (EUA) 2 MG TABLET PO SCH (08:34)
[2020-07-12] MEDS: DEXAMETHASONE SOD PHOSPHATE 4 MG/ML 1ML VIAL IVP SCH (08:34)
[2020-07-12] MEDS: ALBUTEROL INHALER 90MCG/INH IH SCH ×4 (08:36→21:24)
[2020-07-12] MEDS: ENOXAPARIN SODIUM 40 MG/0.4 ML SYRINGE SQ SCH (08:36)
[2020-07-12] MEDS: MEROPENEM 1 GM VIAL IVP SCH ×2 (12:15→22:46)
[2020-07-12] MEDS ORDERED: DEXMEDETOMIDINE HCL 400 MCG in 0.9%NACL 100ML 100 ML IV PRN (19:30)
[2020-07-13] VITALS (37 sets, daily range): BP systolic 104–150; BP diastolic 46–82
[2020-07-13 04:59] LABS: BASOPHILS % (AUTO) 0.1 % (0.0-5.0); HEMATOCRIT 31.1 % (42-54); LYMPHOCYTES % (AUTO) 4.7 % (21.0-51.0); MEAN CORPUSCULAR HEMOGLOBIN 32.5 pg (27.0-33.0); MEAN CORPUSCULAR HGB CONC 33.8 g/dL (32.0-36.0); MEAN CORPUSCULAR VOLUME 96.3 fL (79-99); MONOCYTES % (AUTO) 7.5 % (3.0-13.0); NEUTROPHILS % (AUTO) 86.9 % (40.0-77.0); PLATELET COUNT (AUTO) 137 K/uL (130-400); RED BLOOD CELL COUNT(AUTO) 3.23 MIL/uL (4.50-6.20); RED CELL DISTRIBUTION WIDTH 15.3 % (11.0-15.5); WHITE BLOOD COUNT (AUTO) 17.5 K/uL (4.8-10.8)
[2020-07-13 05:06] LABS: CREATININE 0.7 mg/dL (0.5-1.5); MAGNESIUM 2.3 mg/dL (1.80-2.40); POTASSIUM 4.5 mmol/L (3.5-5.1)
[2020-07-13] MEDS: ALBUTEROL INHALER 90MCG/INH IH SCH (05:49)
[2020-07-13] MEDS: LEVOTHYROXINE 150 MCG TABLET PO SCH (05:49)
[2020-07-13 05:51] LABS: CRP QUANTITATIVE 70.8 mg/L (0.00-9.0)
[2020-07-13] MEDS: FAMOTIDINE 20MG VIAL IV SCH ×2 (09:13→21:13)
[2020-07-13] MEDS: BARICITINIB (EUA) 2 MG TABLET PO SCH (09:13)
[2020-07-13] MEDS: ENOXAPARIN SODIUM 40 MG/0.4 ML SYRINGE SQ SCH (09:13)
[2020-07-13] MEDS: DEXAMETHASONE SOD PHOSPHATE 4 MG/ML 1ML VIAL IVP SCH (09:13)
[2020-07-13] MEDS: MEROPENEM 1 GM VIAL IVP SCH (11:54)
[2020-07-14] VITALS (38 sets, daily range): BP systolic 85–130; BP diastolic 43–71
[2020-07-14] MEDS: MEROPENEM 1 GM VIAL IVP SCH (01:07)
[2020-07-14 05:01] LABS: CRP QUANTITATIVE 96.4 mg/L (0.00-9.0)
[2020-07-14 05:30] LABS: BASOPHILS % (AUTO) 0.1 % (0.0-5.0); EOSINOPHILS % (AUTO) 0.2 % (0.0-8.0); HEMATOCRIT 28.7 % (42-54); LYMPHOCYTES % (AUTO) 4.3 % (21.0-51.0); MEAN CORPUSCULAR HEMOGLOBIN 31.9 pg (27.0-33.0); MEAN CORPUSCULAR HGB CONC 33.1 g/dL (32.0-36.0); MEAN CORPUSCULAR VOLUME 96.3 fL (79-99); MONOCYTES % (AUTO) 7.9 % (3.0-13.0); NEUTROPHILS % (AUTO) 86.9 % (40.0-77.0); PLATELET COUNT (AUTO) 140 K/uL (130-400); RED BLOOD CELL COUNT(AUTO) 2.98 MIL/uL (4.50-6.20); RED CELL DISTRIBUTION WIDTH 15.5 % (11.0-15.5); WHITE BLOOD COUNT (AUTO) 21.1 K/uL (4.8-10.8)
[2020-07-14] MEDS: LEVOTHYROXINE 150 MCG TABLET PO SCH (05:41)
[2020-07-14 05:44] LABS: ALBUMIN 1.8 g/dL (3.5-5.0); BILIRUBIN,TOTAL 2.1 mg/dL (0.2-1.0); CREATININE 0.6 mg/dL (0.5-1.5); POTASSIUM 4.4 mmol/L (3.5-5.1); TOTAL PROTEIN, SERUM 5.8 g/dL (6.0-8.3)
[2020-07-14] MEDS: ACETYLCYSTEINE 10% 100MG/ML 4ML VIAL IH SCH ×3 (07:36→18:42)
[2020-07-14] MEDS: ALBUTEROL 0.042% 1.25MG/3ML IH SCH ×3 (07:36→18:42)
[2020-07-14] MEDS: DEXAMETHASONE SOD PHOSPHATE 4 MG/ML 1ML VIAL IVP SCH (09:04)
[2020-07-14] MEDS: FAMOTIDINE 20MG VIAL IV SCH ×2 (09:04→21:41)
[2020-07-14] MEDS: ENOXAPARIN SODIUM 40 MG/0.4 ML SYRINGE SQ SCH (09:04)
[2020-07-15] VITALS (29 sets, daily range): BP systolic 80–127; BP diastolic 37–65
[2020-07-15] MEDS: ACETYLCYSTEINE 10% 100MG/ML 4ML VIAL IH SCH ×4 (00:22→18:20)
[2020-07-15] MEDS: ALBUTEROL 0.042% 1.25MG/3ML IH SCH ×4 (00:22→18:20)
[2020-07-15 05:25] LABS: CRP QUANTITATIVE 200.2 mg/L (0.00-9.0)
[2020-07-15 05:35] LABS: BASOPHILS % (AUTO) 0.1 % (0.0-5.0); HEMATOCRIT 26.2 % (42-54); LYMPHOCYTES % (AUTO) 3.3 % (21.0-51.0); MEAN CORPUSCULAR HEMOGLOBIN 32.5 pg (27.0-33.0); MEAN CORPUSCULAR HGB CONC 33.6 g/dL (32.0-36.0); MEAN CORPUSCULAR VOLUME 96.7 fL (79-99); PLATELET COUNT (AUTO) 121 K/uL (130-400); RED BLOOD CELL COUNT(AUTO) 2.71 MIL/uL (4.50-6.20); RED CELL DISTRIBUTION WIDTH 15.9 % (11.0-15.5)
[2020-07-15 05:46] LABS: ALBUMIN 1.7 g/dL (3.5-5.0); BILIRUBIN,TOTAL 2.1 mg/dL (0.2-1.0); CREATININE 0.7 mg/dL (0.5-1.5); POTASSIUM 4.1 mmol/L (3.5-5.1); TOTAL PROTEIN, SERUM 5.8 g/dL (6.0-8.3)
[2020-07-15] MEDS: LEVOTHYROXINE 150 MCG TABLET PO SCH (05:55)
[2020-07-15] MEDS: FAMOTIDINE 20MG VIAL IV SCH ×2 (07:50→20:09)
[2020-07-15] MEDS: DEXAMETHASONE SOD PHOSPHATE 4 MG/ML 1ML VIAL IVP SCH (07:50)
[2020-07-15] MEDS: ENOXAPARIN SODIUM 40 MG/0.4 ML SYRINGE SQ SCH (07:51)
[2020-07-15] MEDS: ALBUTEROL INHALER 90MCG/INH IH SCH ×2 (10:00→14:00)
[2020-07-15] MEDS ORDERED: LORAZEPAM 2 MG/ML 1 ML VIAL IVP PRN (19:00)
[2020-07-15] MEDS ORDERED: ACETAMINOPHEN 650 MG SUPPOSITORY RC PRN (19:00)
[2020-07-15] MEDS ORDERED: BISACODYL 10 MG SUPP.RECT RC PRN (19:00)
[2020-07-15] MEDS ORDERED: MORPHINE 2 MG SYG IV PRN (19:00)
[2020-07-15] MEDS ORDERED: GLYCOPYRROLATE 1 MG/5 ML SYRINGE IV PRN (19:00)
[2020-07-15] MEDS ORDERED: ONDANSETRON 4MG INJ IVP PRN (19:00)
[2020-07-16] VITALS (7 sets, daily range): BP systolic 95–118; BP diastolic 47–61
[2020-07-16] MEDS: LEVOTHYROXINE 150 MCG TABLET PO SCH (06:19)
[2020-07-16] MEDS: ALBUTEROL 0.042% 1.25MG/3ML IH SCH (06:22)
[2020-07-16] MEDS: ACETYLCYSTEINE 10% 100MG/ML 4ML VIAL IH SCH (06:22)
[2020-07-16] MEDS: DEXAMETHASONE SOD PHOSPHATE 4 MG/ML 1ML VIAL IVP SCH (08:15)
[2020-07-16] MEDS: FAMOTIDINE 20MG VIAL IV SCH (08:15)
[2020-07-16] MEDS: ENOXAPARIN SODIUM 40 MG/0.4 ML SYRINGE SQ SCH (08:16)
[2020-07-16] MEDS: ALBUTEROL INHALER 90MCG/INH IH SCH ×2 (08:19→10:00)
[2020-07-16] MEDS ORDERED: LACTATED RINGERS 1000ML 1,000 ML IV SCH ×2 (10:45→15:00)
== END 2020-07-15 18:50 | disposition hospice, inpatient (51) | DRG 870 ==
LOC: EDH 17:50 → EDHIP 21:21 → 2AH 06-29 03:51 → 2BH 07-11 18:38
PROVIDERS: ADMIT Internal Medicine Hematology & Oncology; ATTEND Internal Medicine Hematology & Oncology
PROC: 5A1955Z Respiratory Ventilation, Greater than 96 Consecutive Hours (ICD-10-PCS; 2020-06-30)
PROC: 0BH17EZ Insertion of Endotracheal Airway into Trachea, Via Natural or Artificial Opening (ICD-10-PCS; 2020-06-30)
PROC: 0DC58ZZ Extirpation of Matter from Esophagus, Via Natural or Artificial Opening Endoscopic (ICD-10-PCS; 2020-06-30)
PROC: 30233R1 Transfusion of Nonautologous Platelets into Peripheral Vein, Percutaneous Approach (ICD-10-PCS; principal; 2020-07-05)
PROC: 0DJ08ZZ Inspection of Upper Intestinal Tract, Via Natural or Artificial Opening Endoscopic (ICD-10-PCS; 2020-07-05)
PROC: 5A09357 Assistance with Respiratory Ventilation, Less than 24 Consecutive Hours, Continuous Positive Airway Pressure (ICD-10-PCS; 2020-07-09)
PROC: 5A09357 Assistance with Respiratory Ventilation, Less than 24 Consecutive Hours, Continuous Positive Airway Pressure (ICD-10-PCS; 2020-07-10)
PROC: 5A09357 Assistance with Respiratory Ventilation, Less than 24 Consecutive Hours, Continuous Positive Airway Pressure (ICD-10-PCS; 2020-07-11)
PROC: 5A09357 Assistance with Respiratory Ventilation, Less than 24 Consecutive Hours, Continuous Positive Airway Pressure (ICD-10-PCS; 2020-07-12)
PROC: 5A09457 Assistance with Respiratory Ventilation, 24-96 Consecutive Hours, Continuous Positive Airway Pressure (ICD-10-PCS; 2020-07-13)
DX: A41.9 Sepsis, unspecified organism (principal); U07.1 COVID-19; J12.82 Pneumonia due to coronavirus disease 2019; J96.01 Acute respiratory failure with hypoxia; J96.02 Acute respiratory failure with hypercapnia; R65.21 Severe sepsis with septic shock; E87.1 Hypo-osmolality and hyponatremia; E87.0 Hyperosmolality and hypernatremia; N17.9 Acute kidney failure, unspecified; E44.0 Moderate protein-calorie malnutrition; D68.59 Other primary thrombophilia; G93.40 Encephalopathy, unspecified; I31.3 Pericardial effusion (noninflammatory); I82.619 Acute embolism and thrombosis of superficial veins of unspecified upper extremity; I82.623 Acute embolism and thrombosis of deep veins of upper extremity, bilateral; J90 Pleural effusion, not elsewhere classified; J98.11 Atelectasis; I82.611 Acute embolism and thrombosis of superficial veins of right upper extremity; E86.0 Dehydration; F79 Unspecified intellectual disabilities; Q90.9 Down syndrome, unspecified; R11.2 Nausea with vomiting, unspecified; K22.2 Esophageal obstruction; E87.5 Hyperkalemia; D69.59 Other secondary thrombocytopenia; E03.9 Hypothyroidism, unspecified; E11.9 Type 2 diabetes mellitus without complications; E87.6 Hypokalemia; H50.9 Unspecified strabismus; H54.7 Unspecified visual loss; K22.8 Other specified diseases of esophagus; K75.9 Inflammatory liver disease, unspecified; L40.9 Psoriasis, unspecified; R13.12 Dysphagia, oropharyngeal phase; T18.128A Food in esophagus causing other injury, initial encounter; Z51.5 Encounter for palliative care; Z53.9 Procedure and treatment not carried out, unspecified reason; Z66 Do not resuscitate; Z74.01 Bed confinement status; Z87.01 Personal history of pneumonia (recurrent)
CPT/HCPCS: 31500; 36415; 36430; 36600; 43215; 43235; 70450; 71045; 71250; 74018; 76705; 80048; 80053; 80061; 80076; 81001; 82043; 82435; 82728; 82803; 82947; 82948; 83605; 83615; 83735; 84100; 84132; 84145; 84295; 84439; 84443; 84481; 84484; 85018; 85025; 85027; 85378; 85610; 86022; 86140; 86850; 86900; 86901; 87040; 87071; 87205; 87426; 87449; 92950; 93005; 93306; 93970; 94002; 94003; 94640; 94660; 94667; 94668; A4606; G0378; G9654; J0171; J0456; J0461; J0610; J0696; J1100; J1580; J1630; J1650; J1815; J1940; J2060; J2185; J2370; J2543; J2704; J3010; J3475; J3480; J3490; J7030; J7040; J7042; J7050; J7070; J7608; P9034; P9047; U0003

== ENCOUNTER 2020-07-15 18:51 | Inpatient (IN) | payer OTHER ==
[~2020-07-15 18:51] MED LIST changes: -ATROPINE 1MG SYG IVP ONE; -CACL 1GM SYG IVP ONE; +LEVO150T11 PO; -SODIUM BICARB 8.4% 50ML SYRINGE IVP ONE
[2020-07-16] MEDS ORDERED: ACETAMINOPHEN 650 MG SUPPOSITORY RC PRN ×2 (14:45)
[2020-07-16] MEDS ORDERED: BISACODYL 10 MG SUPP.RECT RC PRN (14:45)
[2020-07-16] MEDS ORDERED: ONDANSETRON 4MG INJ IVP PRN (14:45)
[2020-07-16] MEDS ORDERED: GLYCOPYRROLATE 1 MG/5 ML SYRINGE IV SCH (14:45)
[2020-07-16] MEDS ORDERED: LORAZEPAM 2 MG/ML 1 ML VIAL IVP PRN (14:45)
[2020-07-16] MEDS: MORPHINE 2 MG SYG IVP PRN ×2 (15:24→16:30)
== END 2020-07-16 20:04 | disposition expired | DRG 871 ==
LOC: 2BH 18:51
PROVIDERS: ADMIT Internal Medicine Hematology & Oncology; ATTEND Internal Medicine Hematology & Oncology
DX: A41.9 Sepsis, unspecified organism (principal); U07.1 COVID-19; J96.91 Respiratory failure, unspecified with hypoxia; R65.21 Severe sepsis with septic shock; J12.82 Pneumonia due to coronavirus disease 2019; E87.1 Hypo-osmolality and hyponatremia; F79 Unspecified intellectual disabilities; Z51.5 Encounter for palliative care; E87.5 Hyperkalemia; Q90.9 Down syndrome, unspecified
CPT/HCPCS: G0378; J2060; J3490